=== PATIENT | female | born 1955 | race Caucasian/White ===

== ENCOUNTER → 2016-12-13 | Outpatient (CLI) | payer OTHER ==
[~2016-12-13] MED LIST: ASPIRIN EC81 M1 PO; CO Q-10100 MG PO; EVISTA PO; FISH OIL 1,0001 EAC7 PO; GABAPENTIN PO; MOBIC15 MG PO; RED YEAST RICE600 MG PO; RELAFEN500 MG PO; SYNTHROID100 MCG PO; TRAMADOL 50 MG50 MG PO; ZYRTEC10 M2 PO
[2016-12-13 11:44] LABS: ABSOLUTE NEUTROPHILS 4.2 thou/uL (1.4-8.2); BASOPHILS 0.9 % (0.0-2.0); EOSINOPHILS 3.9 % (0.0-3.0); HEMATOCRIT 37.5 % (37.0-47.0); HEMOGLOBIN 12.2 gm/dL (12.0-15.0); LYMPHOCYTES 28.5 % (24.0-44.0); MCH 27.1 pg (26.0-34.0); MCHC 32.6 g/dL (28.0-37.0); MCV 83.3 fL (80.0-100.0); MONOCYTES 4.4 % (1.0-8.0); PLATELET COUNT 238 thou/uL (150-400); POLYS 62.3 % (36.0-66.0); RBC 4.51 mil/uL (4.20-5.00); RDW 14.2 % (10.5-14.5); WBC 6.7 thou/uL (4.0-11.0)
[2016-12-13 11:49] LABS: MANUAL DIFF NO
[2016-12-13 12:03] LABS: ALBUMIN 4.1 g/dL (3.4-5.0); ALKALINE PHOSPHATASE 97 U/L (46-116); ANION GAP 8 mmol/L (7-16); BUN 15 mg/dL (7-18); CALCIUM 9.2 mg/dL (8.5-10.1); CHLORIDE 108 mmol/L (98-107); CHOLESTEROL 210 mg/dL (<200); CO2 26 mmol/L (21-32); CREATININE 0.8 mg/dL (0.6-1.0); GLUCOSE 97 mg/dL (74-106); HDL CHOLESTEROL 37 mg/dL (>40); LDL CHOLESTEROL 145 mg/dL (<100); POTASSIUM 4.4 mmol/L (3.5-5.1); SGOT 15 U/L (15-37); SGPT 25 U/L (30-65); SODIUM 142 mmol/L (136-145); TC:HDL 5.7 Ratio (Not establshd); TOTAL BILIRUBIN 0.3 mg/dL (<0.1-1.0); TOTAL PROTEIN 7.2 g/dL (6.4-8.2); TRIGLYCERIDE 140 mg/dL (<150); VLDL 28 mg/dL (<40)
== END ==
LOC: LABMALL 11:01
PROVIDERS: Family Medicine
DX: Z00.00 Encounter for general adult medical examination without abnormal findings (principal); Z13.220 Encounter for screening for lipoid disorders